=== PATIENT | female | born 1935 | race Caucasian/White ===

== ENCOUNTER 2018-01-21 17:09 | Observation (INO) | payer MEDICARE ==
[2018-01-21 19:45] LABS: #Eosinphils 0.3 thou/uL (0.0-0.7); #Lymphocytes 1.6 thou/uL (1.20-3.40); #Neutrophils 6.6 thou/uL (1.40-6.50); %Basophils 0.3 % (0.0-1.0); %Eosinophils 2.7 % (0.0-10.0); %Lymphocytes 17.3 % (21.0-51.0); %Monocytes 10.3 % (0.0-10.0); %Neutrophils 69.4 % (42.0-75.0); Hemoglobin 11.6 g/dL (12.0-16.0); Mean Corpuscular HGB CONC 34.2 g/dL (32.0-36.0); Mean Corpuscular Hemoglobin 32.3 pg (27.0-31.0); Mean Corpuscular Volume 94.3 fL (78.0-98.0); Mean Platelet Volume 6.9 fL (7.4-10.4); Platelet Count 177 thou/uL (130-400); RBC Distribution Width 10.7 % (11.5-14.5); White Blood Cell (WBC) Count 9.4 thou/uL (4.8-10.8)
[2018-01-21 20:18] LABS: ALT (SGPT) 11 U/L (8-55); AST (SGOT) 14 U/L (5-34); Albumin 3.3 g/dL (3.4-4.8); Alkaline Phosphatase 167 U/L (40-150); Anion Gap 13 mmol/L (10-20); BUN (Urea Nitrogen) 21 mg/dL (9.8-20.1); Bilirubin, Total 0.5 mg/dL (0.2-1.2); Calc. Creatinine Clearance 0 mL/min (70-130); Calcium 8.1 mg/dL (7.8-10.44); Carbon Dioxide 22 mmol/L (23-31); Chloride 106 mmol/L (98-107); Estimated GFR-MDRD 79; Globulin 2.9 g/dL (2.4-3.5); Glucose 105 mg/dL (83-110); Potassium 3.8 mmol/L (3.5-5.1); Protein, Total 6.2 g/dL (6.0-8.3); Sodium 137 mmol/L (136-145)
[2018-01-21] MEDS ORDERED: Dextrose 50% Abboject 50 ML SYRINGE SLOW IVP PRN (22:50)
[2018-01-21] MEDS ORDERED: Ondansetron HCl/PF 4 MG/2 ML Vial IVP PRN (22:50)
[2018-01-21] MEDS ORDERED: hydrALAZINE 20 MG/ML VIAL SLOW IVP PRN (22:50)
[2018-01-21] MEDS ORDERED: Dextrose 5% in Water 1,000 ML IV PRN (22:50)
[2018-01-21] MEDS ORDERED: Ondansetron ODT 4 MG TAB PO PRN (22:50)
[2018-01-21] MEDS ORDERED: traMADol HCl 50 MG TAB PO PRN (22:52)
[2018-01-21 23:19] LABS: CKMB 4.2 ng/mL (0-6.6); Troponin I Less than 0.010 ng/mL (< 0.028)
[2018-01-22] MEDS: traMADol HCl 50 MG TAB PO SCH ×5 (00:21→23:43)
[2018-01-22] MEDS: Acetaminophen 500 MG TAB PO SCH ×5 (00:23→23:43)
[2018-01-22] MEDS: Ibuprofen 600 MG TAB PO SCH ×4 (00:23→23:43)
[2018-01-22 00:59] VITALS: BMI 22.7
--- NOTE | 2018-01-22 05:18 | HP ---
DATE OF ADMISSION: 01/21/2018 ATTENDING PHYSICIAN: Dr. Huber. TRAUMA ACTIVATION: Not applicable. HISTORY OF PRESENT ILLNESS: This is an 82-year-old female, who presented to [place] [facility] status pos t mechanical fall approximately 3 weeks ago. Per the patient, she was attempting to back herself up some steps, fell and landed, striking her right hip. At that time, she had onset of lower bilateral hip and back discomfort which she attributed to her history of sciatica. However, over the last 3 we eks and particularly over the last 2-3 days after becoming increasingly more active, the patient has had increasing pain which has been unable to be controlled. She was evaluated in the [facility] and found to have bilateral sacral alar fractures as well as a T12 compression fracture. Trauma Services was asked to admit for observation and pain control. Upon my evaluation, the patient has a chief complaint of lower back discomfort. She has been evaluated by [facility], but due to [facility] insurance, she was unable to be directly admitted. ALLERGIES: None. CHRONIC MEDICAL ILLNESSES: Osteoporosis; glaucoma; history of breast cancer, status post chemo and r adiation. HOME MEDICATIONS: Include sertraline 25 mg p.o. daily, Fosamax, and eyedrops for her glaucoma. PAST SURGICAL HISTORY: History of mastectomy and tonsillectomy. SOCIAL HISTORY: She lives alone, ambulates independently. Denies alcohol, tobacco or illicit drug u se. FAMILY HISTORY: The patient denies family history of any chronic medical problems. REVIEW OF SYSTEMS: Ten-point review of systems was obtained and essentially negative with the except ion of heartburn/indigestion and urinary frequency over the last 3-4 days. PHYSICAL EXAMINATION: VITAL SIGNS: Temperature 98.0, blood pressure 151/72, pulse 62, respirations 18, O2 sat 95% on room air. GENERAL: Well-developed elderly female, in no acute distress, resting in bed. HEAD: Normocephalic, atraumatic. EYES: Pupils are PERRL. Extraocular movements are intact. NECK: Supple. Trachea is midline. CHEST: Atraumatic, nontender to palpation. Normal work of breathing, symmetric rise. LUNGS: Clear to auscultation bilaterally. CARDIOVASCULAR: Regular rate and rhythm. No obvious murmurs, rubs or gallops. GASTROINTESTINAL: Abdomen is soft, nontender, nondistended. Bowel sounds are positive. MUSCULOSKELETAL: Back exam is reported as having some tenderness to the lower back. Bilateral upper extremities within normal limits, bilateral lower extremities within normal limits. NEUROLOGIC: GCS is 15. No focal deficit is noted. LABORATORY DATA: WBC 9.4, hemoglobin 11.6, hematocrit 34.0, platelet count 177. Sodium 137, potassi um 3.8, chloride 106, carbon dioxide 22, BUN 21, creatinine 0.71, glucose 105. AST and ALT within no rmal limits. Cardiac enzymes are pending. Urinalysis is pending. RADIOGRAPHIC FINDINGS: CT of the pelvis demonstrated a bilateral sacral alar fractures and an L5 tra nsverse process fracture. T-spine CT showed a T12 compression fracture. EKG showed sinus rhythm wit h nonspecific T-wave changes. ASSESSMENT: 1. Status post mechanical fall approximately 3 weeks ago. 2. Worsening pain. 3. Bilateral sacral alar fracture. 4. L5 transverse process fracture. 5. T12 compression fracture. 6. Urinary urgency and frequency. 7. Abnormal EKG with substernal discomfort/heartburn. PLAN: Follow up cardiac enzymes. Admit to Trauma Services, pain control and observation. PT, OT. Rehab screen. I have discussed the case with Neurosurgery who recommends TLSO. I have discussed the case with Orthopedic Surgery who plans for nonoperative management. Plans for admission were discus sed with the patient and family at bedside. All questions were answered at the time of this dictatio n. Trauma attending has been notified of admission.
[2018-01-22 06:24] LABS: #Eosinphils 0.2 thou/uL (0.0-0.7); #Lymphocytes 1.5 thou/uL (1.20-3.40); #Monocytes 0.7 thou/uL (0.11-0.59); #Neutrophils 6.2 thou/uL (1.40-6.50); %Basophils 0.2 % (0.0-1.0); %Eosinophils 2.7 % (0.0-10.0); %Lymphocytes 17.1 % (21.0-51.0); %Monocytes 8.6 % (0.0-10.0); %Neutrophils 71.4 % (42.0-75.0); Hemoglobin 11.2 g/dL (12.0-16.0); Mean Corpuscular HGB CONC 33.7 g/dL (32.0-36.0); Mean Corpuscular Hemoglobin 31.7 pg (27.0-31.0); Mean Corpuscular Volume 94.2 fL (78.0-98.0); Mean Platelet Volume 7.1 fL (7.4-10.4); Platelet Count 186 thou/uL (130-400); RBC Distribution Width 10.8 % (11.5-14.5); Red Blood Cell (RBC) Count 3.52 mill/uL (4.20-5.40); White Blood Cell (WBC) Count 8.6 thou/uL (4.8-10.8)
--- NOTE | 2018-01-22 06:36 | CON ---
ATTENDING PHYSICIAN: Dr. Devante Stoddard DATE OF CONSULTATION: 01/22/2018 HISTORY OF PRESENT ILLNESS: The patient is an 82-year-old female who presented to the [facility] ER last night for progressively worsening low back discomfort. The patient reports that low ba ck and bilateral hip pain began approximately 3 weeks ago after a mechanical fall landing on her butt ocks. She was not evaluated at that time, but reports over the next several weeks her low back and b ilateral hip pain became progressively worse, particularly with activities. She was brought to the E mergency Department and evaluated with CT of the pelvis and thoracic spine, which was notable for T12 compression deformity as well as bilateral sacral ala fractures and an L5 transverse process fractur e. She was also evaluated by the Trauma Service who admitted her to the floor for pain control and l ikely need for rehab placement. I am seeing the patient at the bedside. She is comfortable in no ac shandra distress. She currently has no complaints of pain at this time and reports she only has pain whe n ambulating, but can find a comfortable position in the bed. She has no focal neurologic deficits o n my exam. PAST MEDICAL HISTORY: Osteoporosis, remote history of breast cancer, glaucoma. PAST SURGICAL HISTORY: Mastectomy, tonsillectomy. ALLERGIES: Patient has no known drug allergies. SOCIAL HISTORY: She lives at home alone. She does not smoke, drink or use any drugs. FAMILY HISTORY: Noncontributory. REVIEW OF SYSTEMS: Per HPI. PHYSICAL EXAMINATION: GENERAL: She is lying comfortably in the bed in no acute distress. VITAL SIGNS: Temperature 98.6, pulse is 93. She is 92% on room air, BP is 110/64. HEENT: Head is normocephalic, atraumatic. EYES: PERRLA. Extraocular movements intact. ENT: Oral mucosa is pink, intact and moist. She has normal voice. NECK: Nontender to palpation. Free active range of motion, no meningismus or nuchal rigidity. CARDIOVASCULAR: She has regular rate and rhythm. LUNGS: She is breathing comfortably with symmetric chest expansion. BACK: She is tender to palpation diffusely over the lower lumbar spine, she has pain with range of m otion. NEUROLOGIC: She is alert and oriented x4. No focal neurologic deficits are appreciated. MUSCULOSKELETAL: She has free active range of motion of all extremities. No focal motor weakness, n o reflex asymmetry. PLAN: The patient has an acute T12 compression fracture, likely from a fall 3 weeks ago. She also h as acute bilateral sacral ala fractures and a L5 transverse process fracture. We have no plans for s urgical intervention with regard to these. I have ordered a TLSO brace, which the patient should wea r for all out of bed activities. She can remove the brace to shower as well as while lying in bed at night. I will arrange a 4 week follow up with our office and we will repeat x-rays at that time. Sharon chaudhari reach out to Neurosurgery Service for additional questions or concerns.
[2018-01-22 06:45] LABS: Anion Gap 8 mmol/L (10-20); BUN (Urea Nitrogen) 19 mg/dL (9.8-20.1); Calc. Creatinine Clearance 62 mL/min (70-130); Calcium 8.3 mg/dL (7.8-10.44); Carbon Dioxide 24 mmol/L (23-31); Chloride 106 mmol/L (98-107); Estimated GFR-MDRD 77; Glucose 99 mg/dL (83-110); Phosphorus 3.4 mg/dL (2.3-4.7); Potassium 3.9 mmol/L (3.5-5.1); Sodium 134 mmol/L (136-145)
[2018-01-22 07:22] LABS: Bilirubin Negative (Negative); Blood, Urine Negative (Negative); Clarity CLEAR (Clear); Glucose, Urine (Dipstick) Negative (Negative); Leukocyte Trace (Negative); Nitrite Negative (Negative); Protein, Urine (Dipstick) Negative (Neg-Trace); Specific Gravity, Urine 1.019 (1.002-1.036); Urobilinogen 0.2 mg/dL (0.2-1.0)
[2018-01-22 07:25] LABS: Bacteria/HPF None Seen HPF (None Seen); Hyaline Casts/LPF 0-3 HYALINE CAST LPF (0-3 Hyaline); Squamous Epithelial 0-3 HPF (0-3)
[2018-01-22 07:43] LABS: RBC/HPF 0-3 HPF (0-3); Renal Epithelial 0-3 HPF (0-3); Transitional Epithelial 0-3 HPF (0-3)
[2018-01-22] MEDS: Sulfameth/Trimethoprim DS 800-160mg TAB PO SCH ×2 (08:40→20:38)
[2018-01-22] MEDS ORDERED: Gabapentin 300 MG CAP PO SCH (09:00)
--- NOTE | 2018-01-22 09:06 | CON ---
DATE OF CONSULTATION: 01/22/2018 CONSULTING PHYSICIAN: Dr. Brian Thapa HISTORY OF PRESENT ILLNESS: We were asked to see patient from Trauma in the Emergency Room for some pelvis pain. In speaking with the patient she is from [place]. She fell about 3 weeks ago, had so me imaging studies, but was sent home and was found to have sacral insufficiency fractures and some p ubic rami fractures. She went home after the fall and being seen and was able to get around somewhat , but she kept trying to work and do her daily activities and it became just quite painful. The katharine ent ended up going back to the ER and was transferred here for pain control. Currently, she is in be d. She is fidgeting around trying to find a comfortable position. She has had some occasional numbn ess and tingling in her legs, but it is intermittent. Neurosurgery is seeing her for this problem. Currently, has good sensations in the lower extremities and when she fell 3 weeks ago she did not hit her head. PAST MEDICAL HISTORY: Positive for osteoporosis, glaucoma, cancer of the breast with chemo and radia tion in the past. MEDICATIONS: Sertraline, Fosamax, glaucoma eyedrops. PAST SURGICAL HISTORY: Mastectomy, tonsillectomy. ALLERGIES: None. CURRENT MEDICATIONS: Alendronate sodium, calcium carbonate/vitamin D3, cyanocobalamin/folic acid, do rzolamide HCL/timolol maleate, lactobacillus combination #4 and sertraline. REVIEW OF SYSTEMS: Positive for GERD, heartburn. History of some past UTIs, but currently her main complaint is low back and pelvic pain. The rest of review of systems negative. PHYSICAL EXAMINATION: GENERAL: Well-nourished female resting in bed in mild distress. Speech is clear. Affect pleasant. Answers questions appropriately. Alert and oriented x3. HEENT: Normal exam. Face symmetric, tongue midline. NECK: Supple, trachea midline. EXTREMITIES: Upper and lower extremities are equal size, shape, symmetry, normal bulk and tone. She is able to move her lower extremities fairly well and she moves them frequently to get in a more com fortable position. NEURO: Sensation is intact. ASSESSMENT: 1. Fall 3 weeks ago. The patient in for pain control. 2. Sacral insufficiency fractures with pubic rami fractures. PLAN: No surgical intervention is needed. I have explained this to the patient. She was admitted f or pain control. She is seeing Trauma and Neurosurgery also. PT can get started with the patient. She can do weightbearing as she is able to tolerate. Case Management is on her case to get her into rehab or a skilled. The patient does live alone.
[2018-01-22] MEDS: Famotidine 20 MG TAB PO SCH ×2 (10:08→20:38)
[2018-01-22] MEDS: Polyethylene Glycol 3350 17 GM Packet PO SCH (10:08)
[2018-01-22] MEDS: Gabapentin 100 MG CAP PO SCH ×3 (10:08→20:38)
[2018-01-22] MEDS: Senokot S 8.6-50 MG TAB PO SCH ×2 (10:09→20:38)
[2018-01-22] MEDS: Enoxaparin Sodium 30 MG/0.3 ML SYRINGE SC SCH (10:09)
--- NOTE | 2018-01-22 11:08 | PRG ---
DATE OF SERVICE: 01/22/2018 HISTORY OF PRESENT ILLNESS: Ms. Cortez is an 82-year-old woman who was admitted yesterday following a fall approximately 3 weeks ago. The patient presented with worsening low back pain. Workup reveale d bilateral sacral ala fractures, T12 and L5 transverse process fractures. The patient was seen by N eurosurgery recommending nonoperative management of the T12 compression fracture. The patient was al so seen by Orthopedic Surgery who recommended nonoperative management of the sacral ala and pubic bernard i fractures. Currently, the patient reports 6/10 pain. She denies any nausea, vomiting, dyspnea or chest pain. OBJECTIVE: VITAL SIGNS: This morning includes blood pressure 128/66, pulse 57, respiratory rate is 18, temperat ure is 98.4 degrees Fahrenheit, oxygen saturation is 94% on room air. HEENT: Reveals normocephalic and atraumatic. HEART: Reveals regular rate and rhythm, no murmurs or gallops auscultated. CHEST: Clear to auscultation bilaterally. Her breathing is regular and unlabored. ABDOMEN: Soft, nontender, nondistended. EXTREMITIES: 2+ radial and pedal pulses bilaterally. No ankle edema is present. MUSCULOSKELETAL: Reveals 5/5 muscle strength in bilateral upper extremities. Lower extremity is 4/5 with range of motion restricted due to painful low back. NEUROLOGIC: Otherwise reveals no focal deficits present. The patient clearly has no motor or sensor y deficits identified. LABORATORY DATA: Today includes a CBC with 8600 white blood cells, hemoglobin and hematocrit stable at 11.2 and 33.2 respectively. Platelet count is 186,000. Metabolic profile: Sodium 134, potassium 3.9, chloride is 106, bicarbonate is 24, BUN 19, creatinine 0.72, glucose is 99, magnesium 2.0, phos phorus 3.4. IMPRESSION: 1. Post-injury day #21 status post ground level fall. 2. T12 compression fractures. 3. Bilateral sacral ala fractures. 4. Pubic ramus fracture. 4. L5 transverse process fracture. PLAN: 1. Optimize pain management to include gabapentin for neuropathic pain control. 2. Will initiate prophylaxis against VTE. 3. Increase activity per physical and occupational therapy. The patient has been evaluated by PM&R for possible inpatient rehabilitation. The above findings and plan was communicated to the patient who indicates understanding of the inform ation given. We will continue with physical and occupational therapy to increase activity as tolerat ed.
[2018-01-23] MEDS: Acetaminophen 500 MG TAB PO SCH ×4 (05:56→23:30)
[2018-01-23] MEDS: traMADol HCl 50 MG TAB PO SCH ×4 (05:57→23:29)
[2018-01-23] MEDS: Polyethylene Glycol 3350 17 GM Packet PO SCH (08:49)
[2018-01-23] MEDS: Senokot S 8.6-50 MG TAB PO SCH ×2 (08:49→20:37)
[2018-01-23] MEDS: Gabapentin 100 MG CAP PO SCH (08:49)
[2018-01-23] MEDS: Famotidine 20 MG TAB PO SCH ×2 (08:49→20:37)
[2018-01-23] MEDS: Sulfameth/Trimethoprim DS 800-160mg TAB PO SCH ×2 (08:49→20:36)
[2018-01-23] MEDS: Ibuprofen 600 MG TAB PO SCH ×3 (08:50→23:30)
[2018-01-23] MEDS: Enoxaparin Sodium 30 MG/0.3 ML SYRINGE SC SCH (08:51)
--- NOTE | 2018-01-23 14:35 | PRG ---
DATE OF SERVICE: 01/23/2018 SUBJECTIVE: Ms. Cortez is an 82-year-old woman who suffered multiple trauma following a fall 3 weeks ago. Injuries included T12 compression fracture, bilateral sacral ala fractures, pubic rami fracture as well as L5 transverse process fractures. This morning, she reports adequate pain control when is not moving, but while ambulating, her pain was a 9/10. She moves all extremities and answers questi ons appropriately. She tolerates diet. She has not had any bowel movement since this admission. OBJECTIVE: VITAL SIGNS: This morning includes blood pressure 129/70, pulse 68, respiration rate is 18, temperat ure 98.3 degrees Fahrenheit, oxygen saturation 95% on room air. HEART: Reveals regular rate and rhythm. No murmurs or gallops auscultated. CHEST: Clear to auscultation bilaterally. Her breathing is regular and unlabored. ABDOMEN: Soft, nontender, nondistended. EXTREMITIES: Reveals 2+ radial and pedal pulses bilaterally. NEUROLOGIC: Reveals no focal deficits present. The patient describes the left leg pain as burning s ensation. She denies any muscle spasm. IMPRESSION: 1. Post-injury day #22, status post ground level fall. 2. Multiple fractures involving T12, bilateral sacral ala, T5 transverse process and pubic ramus. 3. The patient is hemodynamically stable. 4. We will increase the gabapentin to 300 mg t.i.d. We will continue with acetaminophen, ibuprofen a nd tramadol for pain control. Increase activity per physical and occupational therapy. The patient has been evaluated by PM&R for inpatient rehabilitation post-discharge.
[2018-01-23] MEDS: Gabapentin 300 MG CAP PO SCH ×2 (14:58→20:36)
[2018-01-24] MEDS: traMADol HCl 50 MG TAB PO SCH ×3 (05:20→18:15)
[2018-01-24] MEDS: Acetaminophen 500 MG TAB PO SCH ×3 (05:21→18:15)
[2018-01-24] MEDS: Senokot S 8.6-50 MG TAB PO SCH ×2 (08:21→20:03)
[2018-01-24] MEDS: Ibuprofen 600 MG TAB PO SCH ×2 (08:21→16:04)
[2018-01-24] MEDS: Famotidine 20 MG TAB PO SCH ×2 (08:21→20:04)
[2018-01-24] MEDS: Gabapentin 300 MG CAP PO SCH ×3 (08:21→20:04)
[2018-01-24] MEDS: Enoxaparin Sodium 30 MG/0.3 ML SYRINGE SC SCH (08:22)
[2018-01-24] MEDS: Polyethylene Glycol 3350 17 GM Packet PO SCH (08:22)
[2018-01-24] MEDS: Sulfameth/Trimethoprim DS 800-160mg TAB PO SCH ×2 (08:29→20:04)
[2018-01-24] MEDS: Lidocaine 5% Patch TD SCH (08:54)
[2018-01-24] MEDS ORDERED: Lidocaine 5% Patch TD SCH (09:00)
--- NOTE | 2018-01-24 11:00 | PRG ---
DATE OF SERVICE: 01/24/2018 SUBJECTIVE: Daisy Cortez is an 82-year-old female status post fall with bilateral sacral alar fractur es and a T12 compression fracture. The patient states that she is still having pain, but it is zoran r controlled today. She is concerned about weakness and having difficulty feeding herself. She is e ager to go to inpatient rehab for further rehabilitation and improvement in strength. She is still h aving issues with constipation. OBJECTIVE: VITAL SIGNS: Temperature 97.8, pulse 67, respiration rate 18, O2 sat 96% on room air, blood pressure 155/87. GENERAL: Elderly appearing female in no acute distress, resting in bed, attempting to eat breakfast. PULMONARY: Normal work of breathing. Symmetric rise. CARDIOVASCULAR: Regular rate and rhythm. GASTROINTESTINAL: Abdomen is soft, nontender, nondistended. MUSCULOSKELETAL: Moves all extremities x4. NEUROLOGIC: No focal deficit noted. ASSESSMENT: 1. Status post ground level fall. 2. Bilateral sacral alar fracture, pubic rami fracture. 3. T12 compression fracture, L5 transverse process fracture. 4. Constipation. PLAN: Add Lidoderm patch to left hip for persistent pain and burning. Continue other pain medicatio ns as ordered. Add feeder at bedside to assist the patient with nutritional feeds. Ensure for nutri tion supplement. Continue PT and OT. Follow up with case management regarding patient's status for inpatient rehab, currently awaiting insurance approval. Plan of care was updated with the patient at bedside. All questions were answered at the time of this dictation. The patient was seen and evaluated with Lana Bui.
[2018-01-24] MEDS ORDERED: Glycerin Adult Supp. (12 ct jar) PR SCH (13:15)
[2018-01-24] MEDS: Lactinex Tablet PO SCH (20:03)
[2018-01-24] MEDS: Calcium Carbonate + Vit D 1 TAB PO SCH (20:04)
[2018-01-24] MEDS: Dorzolamide HCl/Timolol Maleate 2%/0.5% Ophth Soln 10 ml Bottle EA EYE SCH (20:04)
[2018-01-24] MEDS ORDERED: Lidocaine Patch Removal 1 EACH TOP SCH (21:00)
[2018-01-25] MEDS: Acetaminophen 500 MG TAB PO SCH ×3 (00:20→12:28)
[2018-01-25] MEDS: Ibuprofen 600 MG TAB PO SCH ×3 (00:20→15:22)
[2018-01-25] MEDS: traMADol HCl 50 MG TAB PO SCH ×3 (00:21→12:30)
[2018-01-25] MEDS: Polyethylene Glycol 3350 17 GM Packet PO SCH (08:46)
[2018-01-25] MEDS: Calcium Carbonate + Vit D 1 TAB PO SCH (08:47)
[2018-01-25] MEDS: Gabapentin 300 MG CAP PO SCH ×2 (08:47→15:22)
[2018-01-25] MEDS: Senokot S 8.6-50 MG TAB PO SCH (08:47)
[2018-01-25] MEDS: Famotidine 20 MG TAB PO SCH (08:47)
[2018-01-25] MEDS: Lactinex Tablet PO SCH (08:47)
[2018-01-25] MEDS: Sulfameth/Trimethoprim DS 800-160mg TAB PO SCH (08:47)
[2018-01-25] MEDS: Dorzolamide HCl/Timolol Maleate 2%/0.5% Ophth Soln 10 ml Bottle EA EYE SCH (08:48)
[2018-01-25] MEDS: Enoxaparin Sodium 30 MG/0.3 ML SYRINGE SC SCH (08:48)
[2018-01-25] MEDS ORDERED: FOLIC ACID PO SCH (09:00)
[2018-01-25] MEDS ORDERED: CYANOCOBALAMIN PO SCH (09:00)
[2018-01-25] MEDS: Lidocaine 5% Patch TD SCH (09:54)
[2018-01-25 15:54] VITALS: BP 138/75; TEMP 98
--- NOTE | 2018-01-25 21:23 | EKG ---
Test Reason : Blood Pressure : / mmHG Vent. Rate : 060 BPM Atrial Rate : 061 BPM P-R Int : 000 ms QRS Dur : 072 ms QT Int : 438 ms P-R-T Axes : 000 -05 022 degrees QTc Int : 438 ms Junctional rhythm Septal infarct , age undetermined Abnormal ECG Confirmed by DEV BUCKNER [id number]), editorial manager TOM CALVERT ([id number] on 01/25/2018 9:23:02 PM Referred By: Confirmed By:DEV BUCKNER
--- NOTE | 2018-01-26 01:48 | DIS ---
DATE OF ADMISSION: 01/21/2018 DATE OF DISCHARGE: 01/25/2018 ADMISSION DIAGNOSES: 1. Status post fall 3 weeks ago. 2. Subacute traumatic pain. 3. Bilateral sacral alar fracture. 4. L5 transverse process fracture. 5. T12 compression fracture. 6. Possible urinary tract infection. 7. Abnormal EKG. DISCHARGE DIAGNOSES: 1. Status post fall 3 weeks ago. 2. Subacute traumatic pain. 3. Bilateral sacral alar fracture. 4. L5 transverse process fracture. 5. T12 compression fracture. 6. Possible urinary tract infection, resolved. 7. Abnormal EKG, no acute coronary syndrome identified. CONSULTANTS: Dr. Stoddard, Neurosurgery; Dr. Thapa, Orthopedic Surgery. PROCEDURE: None. HOSPITAL COURSE: This is an 82-year-old female who presented to [facility] as a transfer from [facility] status post fall 3 weeks prior to admission. The patient had increasing pain and decreasin g mobility. She was seen and evaluated at the [place] [facility] and found to have the above i njuries. She was transferred to [facility] for further evaluation and care. She was admitt ed for pain control and observation as well as placed in a longterm facility. The patient did well post-admission. Pain was controlled with p.o. analgesics and she was tolerating a general diet . She was able to work with physical therapy and occupational therapy. She was medically stable for discharge and finally accepted at [facility] after insurance approval on 01/25/2018. DISCHARGE DISPOSITION: [facility] facility. DISCHARGE CONDITION: Fair. PHYSICAL EXAMINATION: VITAL SIGNS: Temperature 98, pulse 62, respirations 16, O2 sat 95% on room air, blood pressure 138/7 5. GENERAL: Well-developed elderly female in no acute distress, resting in bed. PULMONARY: Normal work of breathing, symmetric rise. CARDIOVASCULAR: Regular rate and rhythm. GASTROINTESTINAL: Abdomen is soft, nontender, nondistended. MUSCULOSKELETAL: Moves all extremities x4. NEUROLOGIC: No focal deficit noted. DISCHARGE INSTRUCTIONS: Discharge instructions were provided to the patient and the accepting facili ty. She is weightbearing as tolerated on all 4 extremities. She should wear her TLSO brace for out of bed activities and may wear it when sitting. FOLLOWUP APPOINTMENTS: The patient should follow up with Dr. Stoddard in approximately 2-3 weeks. H is office will arrange for a followup and provide information. The patient is to follow up with Dr. Thapa in approximately 2-3 weeks. She should call his office for an appointment. She does not n eed to follow up with Dr. Bui or Trauma Services formally, but may call our office with any questio ns. She is to follow up with her primary care provider as needed. This is merely a summary of the gila ponce's hospitalization. For more in-depth information, please see her medical record in its entire ty.
== END 2018-01-25 16:19 ==
LOC: ERS 17:09 → SURG A 23:06
PROVIDERS: ADMIT Specialist; ATTEND Specialist
DX: S32.10XA Unspecified fracture of sacrum, initial encounter for closed fracture (principal); S32.509A Unspecified fracture of unspecified pubis, initial encounter for closed fracture; S22.9XXA Fracture of bony thorax, part unspecified, initial encounter for closed fracture; M81.0 Age-related osteoporosis without current pathological fracture; Z79.899 Other long term (current) drug therapy
CPT/HCPCS: 80048; 80053; 82553; 83735; 84100; 84484; 85025 ×2; 87086; 93005; 96361; 96372 ×4; 96374; 96376; 97116 ×4; 97139 ×5; 97530 ×4; 99285; G0378 ×3; G8978; G8979; G8987; G8988; 36415; 81003; 81015; G0390; J1650; J2270